=== PATIENT | female | born 1935 | race Caucasian/White ===

== ENCOUNTER 2023-10-13 07:42 | Outpatient (RCR) | payer OTHER, SELFPAY ==
[2023-10-13 07:55] VITALS: BP 95/47
[2023-10-13] MEDS: SODIUM BICARBONATE 1150 MEQ IV (08:09)
== END 2023-10-19 23:59 | disposition home or self-care (01) ==
LOC: OID 07:42
PROVIDERS: ATTENDING PHYSICIAN Physician Assistant; FAMILY PHYSICIAN Physician Assistant
DX: I71.20 Thoracic aortic aneurysm, without rupture, unspecified (principal); Z92.89 Personal history of other medical treatment
CPT/HCPCS: 96360; 96365; 96366

== ENCOUNTER → 2023-10-13 08:44 | Outpatient (REF) | payer OTHER, SELFPAY | LOC: RAD 08:44 | PROVIDERS: ATTENDING PHYSICIAN Surgery Vascular Surgery; FAMILY PHYSICIAN Physician Assistant | DX: I71.20 Thoracic aortic aneurysm, without rupture, unspecified (principal) | CPT/HCPCS: 71275; 74174; Q9967 ==

== ENCOUNTER 2023-11-19 15:16 | Inpatient (IN) | payer OTHER, SELFPAY ==
[2023-11-19 10:33] VITALS: BMI 29.5
[2023-11-19 10:34] VITALS: BP 156/88
[2023-11-19 10:37] VITALS: BP 156/88
--- NOTE | 2023-11-19 10:45 | ED.GENMED ---
History of Present Illness
General
Chief Complaint: Musculo-Skeletal Complaint
Time Seen by Provider: 11/19/23 10:34
History of Present Illness
History of Present Illness:
88-year-old female with history of hypertension, hyperlipidemia, and coronary artery disease presents the emergency department for evaluation of left shoulder and left hip pain after mechanical fall. Was attempting to exit her apartment when a
fire alarm went off she felt down landing on the left side. Denies head strike. Does not take anticoagulants but is on baby aspirin for coronary disease. On arrival her left hip and lower extremity is shortened and externally rotated
Past History
Past History
ED Past Medical History: CAD and HTN
ED Past Surgical History: Other (Patient has had stents placed in coronary arteries as well as a , and a node removed on the left jaw.)
Social History
Tobacco: Non-smoker
Living: with family
Employment: Retired
Review of Systems
Review of Systems
Allergies reviewed?: Yes
All Other Systems: ROS reviewed and negative except as documented in HPI and ROS
Phy Exam
Physical Exam
Physical Exam:
GEN: Well appearing, NAD, WDWN
Eyes: Normocephalic and atraumatic, PERRLA
HENT: NCAT, oral mucosa moist, no JVD, no cervical adenopathy.
Lungs: CTAB, no wheezes, rales, rhonchi, normal chest wall excursion
Cardiac: RRR, no M/R/G, no peripheral edema. Radial pulses 2+ bilat
Neuro: AO x 3
MSK: Obvious shortening and external rotation of the left lower extremity, left dorsalis pedis pulse is intact and sensation is normal. Left shoulder appears atraumatic, range of motion normal, mild tenderness to the anterior shoulder with no
ecchymosis
Skin: No rashes, petechiae. Normal color, no pallor or jaundice.
Psych: Calm, cooperative, proper hygiene
Course
Orders/Labs/Results
Orders:
Orders
11/19/23 10:44
CR Hip - LT w/wo Pel 2-3 Vw* Urgent
Comment:
Reason For Exam: fall
Include a pelvis x-ray?: Yes
CR Shoulder, Trauma - Left Urgent
Reason For Exam: fall
11/19/23 10:46
Complete Blood Count/With Diff Urgent
Comprehensive Metabolic Panel Urgent
11/19/23 11:14
HYDROmorphone [Dilaudid] 0.5 mg IV NOW STA
11/19/23 11:48
HYDROmorphone [Dilaudid] 0.5 mg IV NOW STA
Abnormal Lab Results
11/19/23
10:46
Hct 35.7 L %
(37.0-47.0)
RDW 15.6 H %
(11.5-14.5)
MPV 10.5 H fL
(7.4-10.4)
Abs Immat Gran (auto) 0.1 H 10^3/uL
(0-0.05)
Immature Gran % 0.9 H %
(0-0.5)
Lymphocytes % 18.5 L %
(20.5-51.1)
BUN 23 H mg/dl
(7-17)
Creatinine 1.1 H mg/dL
(0.6-1.0)
Glucose 122 H mg/dl
(70-99)
11/19/23 10:46
11/19/23 10:46
Vital Signs
Initial and Last Documented VS:
Initial Vital Signs
Temp Pulse Resp BP Pulse Ox
98.1 F 82 16 156/88 98
11/19/23 10:34 11/19/23 10:34 11/19/23 10:34 11/19/23 10:34 11/19/23 10:34
Last Documented Vital Signs
Temp Pulse Resp BP Pulse Ox
98.1 F 72 15 138/71 99
11/19/23 10:34 11/19/23 11:30 11/19/23 11:30 11/19/23 11:00 11/19/23 11:30
MDM/Problems Addressed
MDM/Problems Addressed:
XR of the L hip independently interpreted by me shows a subcapital L femoral neck fracture. L shoulder XR unremarkable. Will be admitted to the hospitalist service for further management
*Critical Care Note
Total Time (30-74mins, 75-104mins- exclusive of procedures): Not Applicable
ED Attending Note
-
Portions of this chart may have been created with voice recognition software.� Occasional wrong word or��sound alike� substitutions may have occurred due to the inherent limitations of voice recognition software.
Discharge Plan
Departure
Patient Disposition: Admit
Date of Disposition: 11/19/23
Time of Disposition: 12:30
Presentation/result/management discussed w/ accepting MD/DO: Hospitalist
Discharge Problem:
Closed fracture of neck of left femur
Prescriptions:
No Action
carvedilol 12.5 MG tablet
12.5 mg PO BID
aspirin 81 MG tablet,delayed release (DR/EC)
81 mg PO DAILY
benazepril [Lotensin] 10 MG tablet
10 mg PO DAILY
cholecalciferol (vitamin D3) [Vitamin D3] 2,000 UNIT capsule
2,000 unit PO DAILY
atorvastatin 40 MG tablet
40 mg PO QPM
therapeutic multivitamin Tablet
1 tab PO DAILY
tramadol 50 mg Tablet
50 mg PO BIDPRN PRN (Reason: moderate pains)
furosemide 40 mg Tablet
40 mg PO DAILYPRN PRN (Reason: edema)
acetaminophen [Tylenol Extra Strength] 500 mg Tablet
500 mg PO Q6HPRN PRN (Reason: mild pain)
methenamine hippurate 1 gram Tablet
1 g PO DAILY
docusate sodium [Colace] 100 mg Capsule
100 mg PO DAILYPRN PRN (Reason: constipation)
Referrals:
Tisha Anna PA [Family Provider] -
Interventions
Interventions:
*Risk Screen - Suicide Last Done: 11/19/23 10:34
*General Assessment Last Done: 11/19/23 10:34
*Neglect/Abuse Screening Last Done: 11/19/23 10:34
ED- Fall Risk Assessment Last Done: 11/19/23 10:34
*ED COVID-19 Vaccine History Last Done: 11/19/23 10:34
ED-Musculoskeletal Assessment Last Done: 11/19/23 10:34
Discharge Date and Time
Print Language: GAMBIAN
[2023-11-19 11:00] VITALS: BP 138/71
[2023-11-19 11:06] LABS: ALT (SGPT) 23 U/L (0-35); AST (SGOT) 29 U/L (14-36); Albumin 3.8 g/dl (3.5-5.0); Alkaline Phosphatase 71 U/L (38-126); Blood Urea Nitrogen 23 mg/dl (7-17); Calcium 9.6 mg/dl (8.4-10.2); Carbon Dioxide 26 mmol/L (22-30); Chloride 106 mmol/L (98-107); Estimated Creatinine Clearance 32 ml/min; Glucose 122 mg/dl (70-99); Potassium 4.3 mmol/L (3.5-5.1); Sodium 141 mmol/L (135-145); Total Bilirubin 0.5 mg/dl (0.2-1.3); Total Protein 7.1 g/dl (6.3-8.2); eGFR 48.03
[2023-11-19 11:09] LABS: % Eosinophils 2.6 % (0-6); % Immature Granulocytes 0.9 % (0-0.5); % Lymphocytes 18.5 % (20.5-51.1); Absolute Basophils 0.1 10^3/uL (0-0.2); Absolute Eosinophils 0.2 10^3/uL (0-0.7); Absolute Immature Granulocytes 0.1 10^3/uL (0-0.05); Absolute Lymphocytes 1.5 10^3/uL (1.2-3.4); Absolute Monocytes 0.4 10^3/uL (0.1-0.6); Absolute Neutrophils 5.7 10^3/uL (1.4-6.5); Hematocrit 35.7 % (37.0-47.0); Hemoglobin 12.1 g/dL (12.0-16.0); Mean Corp Hgb Conc. 33.9 g/dL (33.0-37.0); Mean Corpuscular Hgb 28.2 pg (27.0-31.0); Mean Corpuscular Volume 83.2 fL (81.0-99.0); Mean Platelet Volume 10.5 fL (7.4-10.4); Nucleated Red Blood Cells % 0 %; Platelet Count 246 10^3/uL (130-400); Red Blood Cell Count 4.29 10^6/uL (4.20-5.40); Red Cell Dist. Width 15.6 % (11.5-14.5); White Blood Cell Count 7.9 10^3/uL (4.8-10.8)
[2023-11-19] MEDS: DILAUDID 0.5 MG IV ×2 (11:17→11:52)
--- NOTE | 2023-11-19 14:35 | HPS.HSE ---
Addendum entered and electronically signed by Dave Valladares MD 11/19/23 15:59:
EKG: NSR and no acute ischemic changes. ok to proceed to OR at intermediate risk, no additional testing indicated.
Addendum entered and electronically signed by Dave Valladares MD 11/19/23 15:40:
see update note for addendum
Original Note:
Family Physician
-
Family Physician: GINETTE Brewer
Chief Complaint
-
Fall with left hip pain
History of Present Illness
88-year-old female with history of hypertension, hyperlipidemia, and coronary artery disease presents the emergency department for evaluation of left shoulder and left hip pain after mechanical fall. Was attempting to exit her apartment when a
fire alarm went off she felt down landing on the left side. Denies head strike. Does not take anticoagulants but is on baby aspirin for coronary disease. Patient denies any headache, dizziness, syncopal episode. Patient denies chest pain or
short of breath. Patient denies abdominal pain, nausea, vomiting or diarrhea. Patient denies dysuria, hematuria.
X-ray with subcapital fracture of the left femur. Admitted for further management
Medical History
Past Medical History
Past Medical History: Reports Other
Additional Past Medical History:
[place]
Hyperlipidemia hypertension
CKD 3B
Past Surgical History: Reports Other
Additional Past Surgical History:
Coronary artery disease stent
Social History
Tobacco: Former Smoker
Alcohol: None
Drug: None
Living: Alone
Family History
Family History: Not pertinent
Allergies / Home Medications
Allergies reflects when Allergies were last updated in [facility].
Home Medications with original date entered in [facility]
Allergy/Medication List:
Allergies
Allergy/AdvReac Type Severity Reaction Status Date / Time
amoxicillin [From Augmentin] Allergy Unknown Verified 11/19/23 10:44
clavulanic acid Allergy Unknown Verified 11/19/23 10:44
[From Augmentin]
Home Medications
aspirin 81 mg tablet,delayed release 81 mg PO DAILY Blood Clot Prevention/Tx 08/07/16
benazepril 10 mg tablet (Lotensin) 10 mg PO DAILY Blood Pressure 08/07/16
carvedilol 12.5 mg tablet 12.5 mg PO BID Heart Disease/Condition 08/07/16
cholecalciferol (vitamin D3) 50 mcg (2,000 unit) capsule (Vitamin D3) 2,000 unit PO DAILY Supplement 08/07/16
atorvastatin 40 mg tablet 40 mg PO QPM High Cholesterol 02/26/19
therapeutic multivitamin 1 tab PO DAILY Supplement 03/21/23
tramadol 50 mg tablet 50 mg PO BIDPRN PRN moderate pains 03/21/23
acetaminophen 500 mg tablet (Tylenol Extra Strength) 500 mg PO Q6HPRN PRN mild pain 11/19/23
docusate sodium 100 mg capsule (Colace) 100 mg PO DAILYPRN PRN constipation 11/19/23
furosemide 40 mg tablet 40 mg PO DAILYPRN PRN edema 11/19/23
methenamine hippurate 1 gram tablet 1 g PO DAILY 11/19/23
Review of Systems
-
Constitutional: Reports No Symptoms
EENT: Reports No Symptoms
Respiratory: Reports No Symptoms
Cardiac: Reports No Symptoms
Abdomen/GI: Reports No Symptoms
: Reports No Symptoms
Musculoskeletal: Reports Other (Left hip and left shoulder pain)
Skin: Reports No Symptoms
Neurological: Reports No Symptoms
Endocrine: Reports No Symptoms
Hematologic/Lymphatic: Reports No Symptoms
Psych: Reports No Symptoms
Physical Exam
Vital Signs
Vital Signs
Temp Pulse Resp BP Pulse Ox
98.1 F 85 13 138/71 94
11/19/23 10:34 11/19/23 14:00 11/19/23 14:00 11/19/23 11:00 11/19/23 14:00
Physical Exam
General: Well Developed, Well Nourished and No Apparent Distress
HEENT: NormoCephalic, Moist mucous membranes and Atraumatic
Respiratory: Clear
Cardiac: S1/S2 and Regular Rhythm; No Murmur or Rub
GI: Soft, Non Tender, Non Distended and Normal Bowel Sounds; No Organomegaly
Rectal: Deferred by Provider
Musculoskeletal: No Clubbing, No Cyanosis, No Edema and Other (shortening and external rotation of the left lower extremity)
Skin: No Rash
Neuro: AO x 3 and Nonfocal/grossly intact
Psych: Calm
Laboratory Results
-
11/19/23 10:46
11/19/23 10:46
Laboratory Results
Total Bilirubin 0.5 mg/dl (0.2-1.3) 11/19/23 10:46
AST 29 U/L (14-36) 11/19/23 10:46
ALT 23 U/L (0-35) 11/19/23 10:46
Alkaline Phosphatase 71 U/L (38-126) 11/19/23 10:46
Data Reviewed
-
Diagnostic Radiology: Report Reviewed by me
Lab Data: Labs Reviewed by me
Impression/Plan
-
# Left femoral neck fracture
-Orthopedics consulted
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
tendinitis.Osteopenia
-Hip x-ray with osteopenia with acute subcapital fracture of the left femur associated with 4 mm impaction of the distal fracture fragment
-Oxy and morphine needed for pain
-Will keep patient n.p.o. after midnight
-Bedrest for now, PT OT after surgical intervention
# Chronic kidney disease stage IIIb
-Continue to monitor
#Thoraco abdominal aortic aneurysm
-Follows vascular as outpatient
#CAD hx of PTCA with stenting
-On aspirin and statin
-hold asa
# Essential hypertension
-Coreg continue with hold parameters
# DVT prophylaxis
-SCDs
DNR
[2023-11-19] MEDS: ROXICODONE 5 MG PO (15:11)
[2023-11-19 15:18] VITALS: BP 152/100
--- NOTE | 2023-11-19 15:30 | W.PN.UPDATE ---
Update Note
Progress Note Update
I saw and examined the patient.
The REVENUE LIAISON David's note was reviewed and I agree with the note.
Comment: 88 y/o F hx of HTN, HLD, CAD on ASA presents to ER for mechanical fall. She was exiting her apartment for a fire alarm and fell, landing on left side (shoulder, hip). No head trauma or LOC. No preceding symptoms such as dizziness,
lightheadedness, chest pain or SOB. No other complaints.
in ER found to have Left femoral neck fracture
Physical Exam
General: Well Developed, Well Nourished and No Apparent Distress
HEENT: NormoCephalic, Moist mucous membranes and Atraumatic
Respiratory: Clear
Cardiac: S1/S2 and Regular Rhythm; No Murmur or Rub
GI: Soft, Non Tender, Non Distended and Normal Bowel Sounds; No Organomegaly
Rectal: Deferred by Provider
Musculoskeletal: No Clubbing, No Cyanosis, No Edema and Other (shortening and external rotation of the left lower extremity)
Skin: No Rash
Neuro: AO x 3 and Nonfocal/grossly intact
Psych: Calm
Assessment:
Mechanical fall resulting in traumatic left femoral neck fracture (underlying osteopenia also contributing)
- XR: osteopenia with acute subcapital fracture of the left femur associated with 4 mm impaction of the distal fracture fragment
- Orthopedics consulted
- NPO p MN for OR tomorrow
- pain control
- bedrest
- check pre-op EKG
- Echo: Small left ventricular size. Normal systolic function. No regional wall motion abnormalities are seen. EF 63%. mild concentric LVH. Normal diastolic function. Mild mitral regurgitation. Mild tricuspid regurgitation.
- RCRI score 1, 6% risk of major cardiac events.
Shoulder pain
- XR: No acute abnormalities. 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 Calcification of the distal supraspinatus tendon suggesting possible calcific tendinitis. Osteopenia
- pain control
Chronic kidney disease stage IIIb
- continue to monitor
Thoraco abdominal aortic aneurysm
- Follows vascular as outpatient
CAD hx of PTCA with stenting
- On aspirin and statin
- hold further ASA 81mg pre-op; likely will be on full dose ASA post-op
Essential hypertension
- Coreg continue with hold parameters
DVT prophylaxis: SCDs
Code: DNR
--- NOTE | 2023-11-19 15:47 | W.PN.UPDATE ---
Update Note
Progress Note Update
Full consult dictated. 88 yo female admitted following a fall earlier today. Unable to ambulate after fall onto left hip. [facility] [place] with daughter living close by. Uses walker usually for ambulation.
Radiographs reveal impacted left femoral neck fracture. Have discussed treatment options with the patient and her daughter. We discussed treatment options and I have recommended left hip hemiarthroplasty. Risks, complications, benefits and postop
expectations discussed. All questions answered. Informed consent obtained. Plan for left hip hemiarthroplasty tomorrow. OR notified and rep aware. Patient is a former nurse.
[2023-11-19 16:20] VITALS: BP 154/88
[2023-11-19] MEDS: DILAUDID 1 MG IV (16:34)
[2023-11-19] MEDS: TYLENOL PO (17:17)
[2023-11-19] MEDS: LIPITOR 40 MG PO (17:34)
[2023-11-19] MEDS: TYLENOL 650 MG PO ×2 (20:08→23:07)
[2023-11-19] MEDS: COREG 12.5 MG PO (20:11)
[2023-11-19] MEDS: COLACE PO (20:37)
[2023-11-19] MEDS: SENOKOT PO (20:37)
[2023-11-19 23:33] VITALS: BP 98/52
[2023-11-20] MEDS: DILAUDID 1 MG IV ×2 (02:09→07:24)
[2023-11-20] MEDS: TYLENOL 650 MG PO ×2 (04:19→07:24)
[2023-11-20 07:05] VITALS: BP 110/59
[2023-11-20] MEDS: COLACE 100 MG PO (07:24)
[2023-11-20] MEDS: HIPREX 1 GRAM PO (07:24)
[2023-11-20] MEDS: SENOKOT 17.2 MG PO (07:24)
--- NOTE | 2023-11-20 08:07 | W.PN.UPDATE ---
Update Note
Progress Note Update
Patient resting comfortably in bed this morning. She reports soreness in her left hip. Plan is for OR today for left hip hemiarthroplasty under the direction of Dr. Lopez. Remain NPO. Bedrest until postop. Continue with pain medications as needed.
Will continue to follow along.
[2023-11-20] MEDS: ZESTRIL 10 MG PO (08:35)
[2023-11-20] MEDS: COREG 12.5 MG PO (08:36)
[2023-11-20 08:37] VITALS: BP 130/66
--- NOTE | 2023-11-20 08:45 | W.PN.HOSP.TC ---
Today's Communication/Plan
-
for left hip hemiarthroplasty today
Assessment / Plan
Assessment / Plan
Assessment:
Mechanical fall resulting in traumatic left femoral neck fracture (underlying osteopenia also contributing)
- XR: osteopenia with acute subcapital fracture of the left femur associated with 4 mm impaction of the distal fracture fragment
- Orthopedics consulted; for left hip hemiarthroplasty today
- pain control
- bedrest
- EKG: NSR and no acute ischemic changes. ok to proceed to OR at intermediate risk, no additional testing indicated.
- Echo: Small left ventricular size. Normal systolic function. No regional wall motion abnormalities are seen. EF 63%. mild concentric LVH. Normal diastolic function. Mild mitral regurgitation. Mild tricuspid regurgitation.
- RCRI score 1, 6% risk of major cardiac events.
Shoulder pain
- XR: No acute abnormalities. 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 Calcification of the distal supraspinatus tendon suggesting possible calcific tendinitis. Osteopenia
- pain control
Chronic kidney disease stage IIIb
- continue to monitor
Thoraco abdominal aortic aneurysm
- Follows vascular as outpatient
CAD hx of PTCA with stenting
- On aspirin and statin
- hold further ASA 81mg pre-op; likely will be on full dose ASA post-op
Essential hypertension
- Coreg continue with hold parameters
DVT prophylaxis: SCDs
Code: DNR
Anticipated Discharge: > 48 hours
Subjective/Interval History
-
Date of Service: November 20, 2023
pain controlled, for OR today
Objective Data
-
Labs:
Laboratory Results
11/20/23
08:43
WBC Pending
Hgb Pending
Hct Pending
Plt Count Pending
Sodium Pending
Potassium Pending
Chloride Pending
Carbon Dioxide Pending
BUN Pending
Creatinine Pending
Glucose Pending
Calcium Pending
Vital Signs:
Vital Signs
Temp Pulse Resp BP Pulse Ox
98.3 F 77 16 130/66 95
11/20/23 07:05 11/20/23 08:37 11/20/23 08:37 11/20/23 08:37 11/20/23 07:05
I&O
11/19/23 11/20/23 11/21/23
06:59 06:59 06:59
Intake Total 1140 / 1140
Output Total 400 / 400
Balance 740 / 740
Physical Exam
-
General: No Apparent Distress
HEENT: Normocephalic
Respiratory: Clear to Auscultation; Negative Wheezes or Rales
Cardiac: Regular Rhythm and S1/S2
GI: Soft
Neuro: AO x 3
Hematologic / Lymphatic: No Lymphadenopathy
Psych: Calm
Data Reviewed
-
Total Time Spent with Patient (in minutes): 42
Labs: Labs Reviewed by me
[2023-11-20 09:38] LABS: Hematocrit 35.1 % (37.0-47.0); Hemoglobin 11.7 g/dL (12.0-16.0); Mean Corp Hgb Conc. 33.3 g/dL (33.0-37.0); Mean Corpuscular Hgb 28.6 pg (27.0-31.0); Mean Corpuscular Volume 85.8 fL (81.0-99.0); Mean Platelet Volume 11.3 fL (7.4-10.4); Platelet Count 202 10^3/uL (130-400); Red Blood Cell Count 4.09 10^6/uL (4.20-5.40); Red Cell Dist. Width 15.7 % (11.5-14.5); White Blood Cell Count 8.7 10^3/uL (4.8-10.8)
[2023-11-20 10:08] LABS: Blood Urea Nitrogen 22 mg/dl (7-17); Carbon Dioxide 22 mmol/L (22-30); Chloride 106 mmol/L (98-107); Estimated Creatinine Clearance 32 ml/min; Glucose 93 mg/dl (70-99); Potassium 4.3 mmol/L (3.5-5.1); Sodium 141 mmol/L (135-145); eGFR 48.03
--- NOTE | 2023-11-20 12:15 | W.PN.DEATH ---
Pronouncement of
-
Called to see patient to pronounce.
No spontaneous heart tones or respirations noted.
Patient not responsive to verbal stimuli.
Patient is pronounced .
Time of : 11:58
Date of : 11/20/23
Cause of : bradycardia cardiac arrest
Family Notified: Yes
--- NOTE | 2023-11-20 12:35 | CM ---
Reviewed the chart notes. Patient off unit and prior to CM being able to complete any assessments.
--- NOTE | 2023-11-20 13:03 | PTCARENOTE ---
Received call from Fidelia, nursing supervisor nuclear medicine that patients time of in OR was 1158. Belongings from [facility] packed up (wallet, glasses, cross necklace and dentures) and given to family in PACU.
--- NOTE | 2023-11-20 15:22 | CHAP ---
Responded to the code in OR, and met daughter, Lizbeth, and her , Myke, in the waiting room. Emotional support provided. We proceeded to PACU, where Dr. Lopez spoke to the couple. Evelyne's body was brought in, and Lizbeth and Myke took
time with their mother, and shared about her life. Evelyne was a devout Protestant. We offered prayers from the [employer] and commended Evelyne to God, asking peace for all. Lizbeth had some time alone with her mother, and Myke was provided
information about local homes. Other family members were also expected to arrive. Lizbeth and Myke were assured of the leasing associate's continued availability, should they have further need.
== END 2023-11-20 13:08 | disposition expired | DRG 522 ==
LOC: 2 SOUTH 15:16
PROVIDERS: Physician Assistant; ADMITTING PHYSICIAN Internal Medicine; CONSULT PHYSICIAN Orthopaedic Surgery; EMERGENCY PHYSICIAN Emergency Medicine; FAMILY PHYSICIAN Physician Assistant
PROC: 0SRS0J9 Replacement of Left Hip Joint, Femoral Surface with Synthetic Substitute, Cemented, Open Approach (ICD-10-PCS; 2023-11-20)
DX: S72.012A Unspecified intracapsular fracture of left femur, initial encounter for closed fracture (principal); W18.39XA Other fall on same level, initial encounter; M85.80 Other specified disorders of bone density and structure, unspecified site; M25.512 Pain in left shoulder; I12.9 Hypertensive chronic kidney disease with stage 1 through stage 4 chronic kidney disease, or unspecified chronic kidney disease; N18.32 Chronic kidney disease, stage 3b; I71.60 Thoracoabdominal aortic aneurysm, without rupture, unspecified; I25.10 Atherosclerotic heart disease of native coronary artery without angina pectoris; I46.9 Cardiac arrest, cause unspecified; Z66 Do not resuscitate; Z95.5 Presence of coronary angioplasty implant and graft; Z79.82 Long term (current) use of aspirin
CPT/HCPCS: 73030; 73502; 80048; 80053; 85025; 85027; 86850; 86870; 86900; 86901; 93005; 96374; 96376; 99285; C1713; C1776